=== PATIENT | male | born 1980 | race Caucasian/White ===

== ENCOUNTER 2019-06-23 13:34 | Emergency (ER) | payer SELFPAY ==
[~2019-06-23] VITALS: Ht 160 cm; Wt 69.4 kg
[~2019-06-23 13:34] MED LIST: IBUP-1542 PO; IBUP-1561 PO; NEOM28OI31 TP
[2019-06-23 13:38] VITALS: Ht 160 cm; Wt 69.4 kg
[2019-06-23] MEDS ORDERED: LIDOCAINE 1%/EPI (MDV) 50 ML INJ INJ ONE (14:30)
[2019-06-23] MEDS ORDERED: LIDOCAINE 1% (MDV) 10 ML INJ INJ STA (14:38)
[2019-06-23] MEDS ORDERED: LIDOCAINE 1% (MDV) 20 ML INJ INJ STA (14:51)
[2019-06-23] MEDS ORDERED: DIPHTH/TET/ACEL PERTUSS (ADULT) 0.5 ML VIAL IM* ONE (15:00)
[2019-06-23] MEDS ORDERED: CEFAZOLIN 1 GM INJ IM ONE (15:00)
[2019-06-23 17:01] VITALS: BP 122/62; PULSE 72; RESP 16
--- NOTE | 2019-06-23 19:58 | ERD ---
ER Documentation Chief Complaint Chief Complaint left forearm laceration with chain saw 30 mins ago HPI 39-year-old male presenting with left forearm laceration that happened with a chainsaw 30 minutes prior to arrival. He was cutting a tree when this happened. He is denying any numbness or tingling in the hand. He complains of moderate, constant, throbbing pain to the left forearm. He does not know when his last tetanus vaccine was. He has no other complaints or injuries. ROS All systems reviewed and are negative except as per history of present illness. Medications Home Meds Active Scripts Ibuprofen* (Motrin*) 600 Mg Tab, 600 MG PO Q6H PRN for PAIN AND OR ELEVATED TEMP, #30 TAB Prov:DELFINA LEVNIE MD 06/23/19 Allergies Allergies: Coded Allergies: No Known Allergy (Unverified , 06/23/19) PMhx/Soc Medical and Surgical Hx: pt denies Medical Hx, pt denies Surgical Hx Hx Alcohol Use: No Hx Substance Use: No Hx Tobacco Use: No Smoking Status: Unknown if ever smoked FmHx Family History: No diabetes Physical Exam Vitals Vital Signs Date Temp Pulse Resp B/P (MAP) Pulse Ox O2 O2 Flow FiO2 Time Delivery Rate 06/23/19 98.2 72 16 122/62 99 Room Air 17:01 (82) 06/23/19 98.4 76 18 133/68 99 Room Air 15:26 (89) 06/23/19 98.2 110 18 138/71 99 13:38 (93) Physical Exam Const: No acute distress Head: Atraumatic Eyes: Normal Conjunctiva ENT: Normal External Ears, Nose and Mouth. Neck: Full range of motion. No meningismus. Resp: Clear to auscultation bilaterally Cardio: Regular rate and rhythm, no murmurs Abd: Soft, non tender, non distended. Normal bowel sounds Skin: No petechiae or rashes. Laceration as noted below Left UPPER EXTREMITY: No obvious deformity. No ecchymosis. No edema. 5.5 cm irregular horizontal laceration to the left inner forearm with exposed subcutaneous tissue and lacerated muscle. There is persistent superficial bleeding. No evidence of tendon injury. No large vessel injury. SILT in FDWS/SF/IF. Intact OK/ TU/ X 2-3/F&E 1-5. 2+ RP. CR < 2 sec. Full AROM in Wrist/Elbow/Shoulder. Ext: No cyanosis, or edema Neur: Awake and alert Psych: Normal Mood and Affect Results 24 hrs Current Medications Medications Dose Sig/Ernesto Start Time Status Last (Trade) Ordered Route PRN Stop Time Admin Dose Reason Admin Lidocaine/ 50 ml ONCE ONCE 06/23/19 DC Epinephrine INJ 14:30 06/23/19 (Xylocaine 14:31 1%/ Epi (Mdv)) Diphtheria/ 0.5 ml ONCE ONCE 06/23/19 DC 06/23/19 Tetanus/Acell IM* 15:00 06/23/19 14:59 Pertussis 15:01 (Adacel) Lidocaine 10 ml ONCE STAT 06/23/19 DC HCl INJ 14:38 06/23/19 (Lidocaine 14:40 1% (Mdv) 10 ml) Cefazolin 1 gm ONCE ONCE 06/23/19 DC 06/23/19 Sodium IM 15:00 06/23/19 14:59 (Ancef) 15:01 Lidocaine 10 ml ONCE STAT 06/23/19 DC (Xylocaine INJ 14:51 06/23/19 1% (Mdv) 20 14:52 ml) Procedures/MDM PROCEDURES: Laceration Repair by me: Anesthesia: 1% lidocaine with epinephrine locally Location: Left forearm Tendon/Joint/Nerves: No injury. Only muscle injury noted Foreign body: None detected after copious irrigation and exploration Technique: Superficial bleeding vessels cauterized successfully. Lacerated muscle repaired with horizontal mattress and simple interrupted chromic gut sutures. Fascia closed over the muscle. Then skin closed with horizontal mattress and simple interrupted Ethilon sutures Complexity: Complex laceration requiring subcutaneous sutures/mucosal repair/edge excision Post Closure Length: 5.5 cm [facility] Patient is presenting with significant macerated laceration due to chainsaw injury to the left forearm. He is neurovascularly intact on exam. There is evidence of muscle injury but no evidence of tendon or nerve injury. Complex laceration was repaired. Tetanus vaccine updated. Broad-spectrum prophylactic antibiotics given IM. Patient's bleeding was easily controlled in the department and there is no indication of anemia. No evidence of compartment syndrome, neurologic injury, vascular injury, open joint, tendon laceration, or foreign body. Patient is appropriate for outpatient follow up. 48 hour wound check. Scar minimization instructions given. Departure Diagnosis: Primary Impression: Contact with [employer] as cause of accidental injury Additional Impression: Laceration of forearm without foreign body Encounter type: initial encounter Laterality: left Qualified Codes: S51.812A - Laceration without foreign body of left forearm, initial encounter Condition: Stable Patient Instructions: Laceration, Extrem (Suture, Staple, Or Tape) [facility] Usted se jewell hecho un examen mdico de control que le indica que no est en earle condicin que requiera tratamiento urgente en el Departamento de Emergencia. Un estudio ms profundo y el tratamiento de jimenez condicin pueden esperar sin ningn riesgo hasta que usted sea atendida/o en el consultorio de jimenez mdico o earle clnica. Es responsabilidad suya arreglar earle marcia para el seguimiento del stevie. MANEJO DE CONDICIONES NO URGENTES EN EL FUTURO 1) Si usted tiene un mdico de atencin primaria: Usted debera llamar a jimenez mdico de atencin primaria antes de venir al departamento de emergencia. Despus de las horas de consultorio, jimenez doctor o jimenez asociado/a est disponible por telfono. El mdico o enfermero de bo en el servicio telefnico puede asesorarle por lakes[place]ia medio para atender el problema, o stevie contrario se puede programar ealre marcia. 2) Si usted no tiene un mdico de atencin primaria: Llame al mdico o clnica de referencia que aparece abajo hossein las horas de consultorio para hacer earle marcia para que le vean. CLINICAS: [facility] [phone] [facility] [phone] [facility] [phone] [address] [facility] [phone] [address] [facility] [phone] [facility] [phone] [address] [facility]. [facility] () Griselda se jewell hecho un examen mdico de control que le indica que no est en earle condicin que requiera tratamiento urgente en el Departamento de Emergencia. Un estudio ms profundo y el tratamiento de jimenez condicin pueden esperar sin ningn riesgo hasta que ted sea atendida/o en el consultorio de jimenez mdico o earle clnica. Es responsabilidad suya arreglar earle marcia para el seguimiento del stevie. MANEJO DE CONDICIONES NO URGENTES EN EL FUTURO 1) Si usted tiene un mdico de atencin primaria: Griselda debera llamar a jimenez mdico de atencin primaria antes de venir al departamento de emergencia. Despus de las horas de consultorio, jimenez doctor o jimenez asociado/a est disponible por telfono. El mdico o enfermero de bo en el servicio telefnico puede asesorarle por lakeshia medio para atender el problema, o stevie contrario se puede programar earle marcia. 2) Si usted no tiene un mdico de atencin primaria: Llame al mdico o condado institucions de referencia que aparece abajo hossein las horas de consultorio para hacer earle marcia para que le vean. SI USTED NO PUEDE PAGAR PARA JEANNINE UN MEDICO puede ir a: [facility] [address] [place] [address] [facility] [address] [place] [address] [facility] [address] [place] [address] [facility]A [facility] [address] [place], [place] [id number] Additional Instructions: Regrese en 2 mcneal para que podamos revisar jimenez herida. Si tienes sintomas de infeccion, regresa de inmediato. Los puntos deben ser removidos en 10 - 14 mcneal. DELFINA LEVINE MD Jun 23, 2019 19:58
== END 2019-06-23 17:05 | disposition home or self-care (01) ==
LOC: E/R 13:34
DX: S51.812A Laceration without foreign body of left forearm, initial encounter (principal); W29.3XXA Contact with powered garden and outdoor hand tools and machinery, initial encounter; Y92.9 Unspecified place or not applicable; Z23 Encounter for immunization
CPT/HCPCS: 12002; 73090; 90471; 90715; 96372; 99284; J0690

== ENCOUNTER 2019-06-25 10:41 | Emergency (ER) | payer SELFPAY ==
[~2019-06-25] VITALS: Ht 167.6 cm; Wt 69.5 kg
[2019-06-25 10:46] VITALS: BP 112/61; PULSE 73; RESP 20; Ht 167.6 cm; Wt 69.5 kg
--- NOTE | 2019-06-25 11:35 | ERD ---
ER Documentation Chief Complaint Chief Complaint WOUND RE CHECK HPI This is a 39-year-old male patient who presents emergency room with request for wound check to left forearm. Patient was seen at this ER 3 days ago after cutting arm on chainsaw. ROS All systems reviewed and are negative except as per history of present illness. Medications Home Meds Active Scripts Neomy Sulf/Bacitrac Zn/Poly (ANTIBIOTIC OINTMENT) 28 Gm Oint...g., 28 GM TP DAILY for 14 Days, #28 GM Prov:LUKE CARLISLE NP 06/25/19 Ibuprofen* (Motrin*) 400 Mg Tab, 400 MG PO Q6, #30 TAB Prov:LUKE CARLISLE NP 06/25/19 Ibuprofen* (Motrin*) 600 Mg Tab, 600 MG PO Q6H PRN for PAIN AND OR ELEVATED TEMP, #30 TAB Prov:DELFINA LEVINE MD 06/23/19 Allergies Allergies: Coded Allergies: No Known Allergy (Unverified , 06/23/19) PMhx/Soc Hx Alcohol Use: No Hx Substance Use: No Hx Tobacco Use: No FmHx Family History: diabetes Physical Exam Vitals Vital Signs Date Temp Pulse Resp B/P (MAP) Pulse Ox O2 O2 Flow FiO2 Time Delivery Rate 06/25/19 99.2 73 20 112/61 98 10:46 (78) Physical Exam Const: No acute distress Head: Atraumatic Eyes: Normal Conjunctiva ENT: Normal External Ears, Nose and Mouth. Neck: Full range of motion. No meningismus. Resp: Clear to auscultation bilaterally Cardio: Regular rate and rhythm, no murmurs Abd: Soft, non tender, non distended. Normal bowel sounds Skin: No petechiae or rashes Back: No midline or flank tenderness Ext: No cyanosis, or edema. 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 Wound edges well approximated. Sutures intact. Neur: Awake and alert Psych: Normal Mood and Affect Procedures/MDM PROCEDURES/MDM PROCEDURES: Wound cleaned with normal saline and dressed with nonstick gauze dressing MDM: This is a 39-year-old male patient who presents to the ER for evaluation of suture wound. This is the third day since sutures have been placed. Wound is healing appropriately, no redness, no swelling, no drainage, no erythema, no signs of infection. No signs of neurovascular or neuromuscular damage as patient has full range of motion of forearm, sensation is intact, strength 5/5. Capillary refill less than 2 seconds. No signs of compartment syndrome as patient has minimal pain and there is no swelling or tension at site of wound. Patient has been instructed on continued wound care, returning to emergency room, urgent care, or PMD in 7 days for suture removal. Patient has been instructed on red flag signs and symptoms and when to return for wound evaluation sooner than 7 days. DISPOSITION and PLAN: RX: Ibuprofen The patient has been discharge home to follow-up with community physician. Departure Diagnosis: Primary Impression: Visit for wound check Condition: Stable Patient Instructions: Wound Care Referrals: [facility] Griselda se jewell hecho un examen mdico de control que le indica que no est en mi c ondicin que requiera tratamiento urgente en el Departamento de Emergencia. Un estudio ms profundo y el tratamiento de jimenez condicin pueden esperar sin ningn riesgo hasta que usted sea atendida/o en el consultorio de jimenez mdico o mi clnica. Es responsabilidad suya arreglar mi stefany para el seguimiento del stevie. MANEJO DE CONDICIONES NO URGENTES EN EL FUTURO 1) Si usted tiene un mdico de atencin primaria: Usted debera llamar a jimenez mdico de atencin primaria antes de venir al departamento de emergencia. Despus de las horas de consultorio, jimenez doctor o jimenez asociado/a est disponible por telfono. El mdico o enfermero de bo en el servicio telefnico puede asesorarle por lakeshia medio para atender el problema, o stevie contrario se puede programar mi stefany. 2) Si usted no tiene un mdico de atencin primaria: Llame al mdico o clnica de referencia que aparece abajo hossein las horas de consultorio para hacer mi stefany para que le vean. CLINICAS: [facility] [phone] [facility] [phone] [facility] [[email or web address]] [phone] [place] [address] [phone] [place] [address] [phone] [place] [phone] [address] [facility]. [facility] () Usted se jewell hecho un examen mdico de control que le indica que no est en mi c ondicin que requiera tratamiento urgente en el Departamento de Emergencia. Un estudio ms profundo y el tratamiento de jimenez condicin pueden esperar sin ningn riesgo hasta que usted sea atendida/o en el consultorio de jimenez mdico o mi clnica. Es responsabilidad suya arreglar mi stefany para el seguimiento del stevie. MANEJO DE CONDICIONES NO URGENTES EN EL FUTURO 1) Si usted tiene un mdico de atencin primaria: Usted debera llamar a jimenez mdico de atencin primaria antes de venir al departamento de emergencia. Despus de las horas de consultorio, jimenez doctor o jimenez asociado/a est disponible por telfono. El mdico o enfermero de bo en el servicio telefnico puede asesorarle por lakeshia medio para atender el problema, o stevie contrario se puede programar mi stefany. 2) Si usted no tiene un mdico de atencin primaria: Llame al mdico o condado institucions de referencia que aparece abajo hossein las horas de consultorio para hacer mi stefany para que le vean. SI USTED NO PUEDE PAGAR PARA JEANNINE UN MEDICO puede ir a: [facility] [address] [place] [address] [facility] [address] [place] [address] [facility] [address] [place] [address] [facility] [address] [place], [place] [id number] Additional Instructions: Llame al doctor nombrado mehrdad (Referral Sources) MAANA y clarke mi STEFANY PARA DENTRO DE MI SEMANA. Dgale a la secretaria que nosotros le instruimos hacer esta stefany.Avise o llame si jimenez condicin se empeora antes de la stefany. LUKE CARLISLE NP Jun 25, 2019 11:35
== END 2019-06-25 11:47 | disposition home or self-care (01) ==
LOC: FTE 10:41
DX: Z48.01 Encounter for change or removal of surgical wound dressing (principal)
CPT/HCPCS: 99281